=== PATIENT | male | born 1960 | race Hispanic/Latino ===

== ENCOUNTER 2025-01-28 23:22 | Emergency (ER) | payer SELFPAY ==
[2025-01-28 23:24] VITALS: BP 185/92; PULSE 89; O2SAT 100
[2025-01-28 23:25] VITALS: BP 185/92; PULSE 88; RESP 18; TEMP 36.1; O2SAT 93
[2025-01-28 23:30] VITALS: PULSE 93; RESP 27; O2SAT 94
--- NOTE | 2025-01-28 23:32 | EKG_ITS ---
[address] [address] Test Date: 2025-01-28 Pat Name: Berlin Andrews Department: Room: Gender: Male Outreach Team Member: MOSHE : 1960 Requested By: Order Number: [id number] Reading MD: Nilson Padilla MD Measurements Intervals [place] Rate: 89 P: 71 AR: 112 QRS: 13 QRSD: 116 T: 63 QT: 368 QTc: 447 Interpretive Statements Normal sinus rhythm Electronically Signed On 01-29-2025 8:15:30 PDT by Nilson Padilla MD
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
[2025-01-29] VITALS (18 sets, daily range): BP systolic 129–192; BP diastolic 68–96; PULSE 78–89; RESP 8–28; O2SAT 90–100
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
[2025-01-29] MEDS: MORPHINE 4 MG/ML INJ IV (01:17)
[2025-01-29 01:21] LABS: Prothrombin Time 11.1 SECONDS (9.4-12.5)
[2025-01-29 01:24] LABS: PTT Partial Thromboplastin Tim 24 SECONDS (25.1-36.5)
[2025-01-29 01:25] LABS: Lactate (Lactic Acid) 1.5 mmol/L (0.7-2.1)
[2025-01-29 01:27] LABS: Add Manual Diff / Slide Review NO; Alanine Aminotransferase 28 IU/L (<50); Albumin 4.2 g/dL (3.5-5.0); Albumin Globulin Ratio 1.1 (1.0-2.8); Alkaline Phosphatase 110 U/L (38-126); Aspartate Aminotransferase 46 IU/L (17-59); BUN Creatinine Ratio 24.4 (6-22); Basophils Absolute Auto 100 /uL (0-100); Basophils Percent Auto 0.6 % (0-2); Bilirubin Total 0.9 mg/dL (0.2-1.3); Blood Urea Nitrogen 19 mg/dL (9-20); Carbon Dioxide 24 mmol/L (22-32); Chloride 103 mmol/L (98-107); Eosinophils Absolute Auto 100 /uL (0-450); Eosinophils Percent Auto 1.3 % (2-4); Estimated Glomerular Filt Rate > 60 mL/min (>60); Ethanol (ETOH) < 10 mg/dL; Globulin 3.7 g/dL (1.7-4.1); Glucose 236 mg/dL (70-99); Hematocrit 44.7 % (41-53); Hemoglobin 15.8 g/dL (13.5-17.5); Lipase 89 U/L (23-300); Lymphocytes Absolute Auto 2300 /uL (1100-4500); Mean Corpuscular HGB Conc 35.4 % (30-36); Mean Corpuscular Hemoglobin 31.6 PG (26-34); Mean Corpuscular Volume 89.2 fL (80-100); Monocytes Absolute Auto 1300 /uL (0-900); Monocytes Percent Auto 13.8 % (3-14); Neutrophils Absolute Auto 5400 /uL (1500-7000); Neutrophils Percent Auto 59.3 % (50-75); Platelet Count 147 X10^3/uL (150-400); Potassium 3.9 mmol/L (3.4-5.1); Red Blood Cell Count 5.02 X10^6/uL (4.5-5.9); Red Cell Distribution Width 14.8 % (11.6-14.8); Sodium 135 mmol/L (137-145); Total Protein 7.9 g/dL (6.3-8.2); White Blood Cell Count 9.1 X10^3/uL (4.5-11.0)
[2025-01-29 01:30] LABS: HEMOLYSIS 91 (0-50)
[2025-01-29 02:04] LABS: Ur Creatinine Normal (Normal); Ur Specific Gravity Normal (Normal); Urine pH Normal (Normal)
[2025-01-29 02:05] LABS: UR Morphine/Opiate cutoff 300 Positive (Negative); Urine Amphetamines Negative (Negative); Urine Barbiturates Negative (Negative); Urine Benzodiazepines Negative (Negative); Urine Cocaine Negative (Negative); Urine MDMA Negative (Negative); Urine Methadone Negative (Negative); Urine Methamphetamines Negative (Negative); Urine Oxycodone Negative (Negative); Urine Phencyclidine Negative (Negative); Urine Tetrahydrocannabinol Negative (Negative); Urine Tricyclic Antidepressant Negative (Negative)
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
[2025-01-29] MEDS: methylPREDNISolone 125 MG/2 ML VIAL IV (02:13)
[2025-01-29] MEDS: AZITHROMYCIN 250 MG TABLET 500 MG PO (02:38)
[2025-01-29] MEDS: AMOXICILLIN/CLAV 875/125 MG 1 TAB PO (02:38)
== END 2025-01-29 07:41 | disposition home or self-care (01) ==
PROVIDERS: Emergency Provider Family Medicine
DX: T14.8XXA Other injury of unspecified body region, initial encounter (principal); S09.90XA Unspecified injury of head, initial encounter; M54.2 Cervicalgia; J15.69 Pneumonia due to other Gram-negative bacteria; V89.2XXA Person injured in unspecified motor-vehicle accident, traffic, initial encounter
CPT/HCPCS: 36415; 70450; 71275; 72125; 74177; 80053; 80305; 80320; 83605; 83690; 85025; 85610; 85730; 93005; 96374; 96375; 99284; 99285; J2270; J2919; Q9967